=== PATIENT | female | born 1975 | race Asian ===

== ENCOUNTER → 2017-07-26 | Outpatient (CLI) | payer SELFPAY ==
--- NOTE | 2017-07-26 16:46 | WOMENS IMAGING REPORT ---
EXAM DESCRIPTION: BILAT SCREENING MAMMO W/CAD COMPLETED DATE/TIME: 07/26/2017 9:11 am REASON FOR STUDY: ROUTINE SCREENING Z12.31 Z12.31 ENCNTR SCREEN MAMMOGRAM FOR MALIGNANT NEOPLASM OF MJ COMPARISON: 07/25/2016 TECHNIQUE: Standard craniocaudal and mediolateral oblique views of each breast recorded using 24/7 Carda l acquisition. LIMITATIONS: None. FINDINGS: RIGHT BREAST MASSES: No suspicious masses. CALCIFICATIONS: No new or suspicious calcifications. ARCHITECTURAL DISTORTION: None. DEVELOPING DENSITY: None. ASYMMETRY: None noted. OTHER: No other significant findings. LEFT BREAST MASSES: No suspicious masses. CALCIFICATIONS: Question faint calcifications in the far upper outer quadrant left breast ARCHITECTURAL DISTORTION: Question architectural distortion in the far upper outer quadrant left aliyah st DEVELOPING DENSITY: None. ASYMMETRY: None noted. OTHER: No other significant findings. Read with the assistance of CAD. .[facility] - R2 Cenova Version 1.3 .[facility] Imaging - R2 Cenova Version 1.3 .[facility] Imaging - R2 Cenova Version 2.4 .[facility] [place] R2 Cenova Version 2.4 .[facility] - R2 Clinical Research Physician Version 9.2 IMPRESSION: No mammographic evidence for malignancy right breast. Questionable architectural distortion and faint calcifications left breast upper outer quadrant. The se require further investigation with a left breast 90 mediolateral view, compression magnification views in the 90 mediolateral view and exaggerated craniocaudad view. If these findings persist, ult rasound would be required for followup BREAST DENSITY: d. The breasts are extremely dense, which lowers the sensitivity of mammography. BIRAD: 0 Incomplete: Needs Additional Imaging Evaluation and/or prior Mammograms for Comparison. RECOMMENDATION: RECOMMENDED FOLLOW-UP: Left breast diagnostic mammograms and ultrasound The patient will be contacted for additional imaging. COMMENT: The patient has been notified of the results by letter per SA requirements. Additional no tification policies are in place for contacting patient with suspicious or incomplete findings. Quality ID #225: The [employer] recommends an annual screening mammogram for women aged 40 years or over. This facility utilizes a reminder system to ensure that all patients receive reminder letters, and/or direct phone calls for appointments. This includes reminders for routine scr eening mammograms, diagnostic mammograms, or other Breast Imaging Interventions when appropriate. Th is patient will be placed in the appropriate reminder system. The [employer] (ACR) has developed recommendations for screening MRI of the breast s in certain patient populations, to be used in conjunction with mammography. Breast MRI surveillanc e may be appropriate for women with more than 20% lifetime risk of developing breast cancer as deter mined by genetic testing, significant family history of the disease, or history of mantle radiation f or Hodgkins Disease. ACR Practice Guidelines 2008. TECHNICAL DOCUMENTATION: FINDING NUMBER: (1) ASSESSMENT: (1) JOB ID: [id number] [employer]- All Rights Reserved
== END ==
LOC: WI 11:02
PROVIDERS: ATTEND Internal Medicine Geriatric Medicine
DX: Z12.31 Encounter for screening mammogram for malignant neoplasm of breast (principal)
CPT/HCPCS: 77067; G0202

== ENCOUNTER → 2017-08-07 | Outpatient (CLI) | payer BC ==
--- NOTE | 2017-08-07 13:53 | WOMENS IMAGING REPORT ---
EXAM DESCRIPTION: LEFT DIAGNOSTIC MAMMO W/CAD COMPLETED DATE/TIME: 08/07/2017 1:14 pm REASON FOR STUDY: CALCIFICATIONS R92.0 MAMMOGRAPHIC MICROCALCIFICATION FOUND ON DX IMAGING OF COMPARISON: 2015, and 2016 TECHNIQUE: Cone compression and Compression magnification mediolateral oblique images of the left br east recorded with digital acquisition. Additional left breast XCC and 90 mediolateral views. LIMITATIONS: None. FINDINGS: BREAST: Left MASSES: No suspicious masses. Findings of concern on 07/26/2017 mammograms represented superimposed shadows. CALCIFICATIONS: No new or suspicious calcifications. In particular, no microcalcifications over the upper outer quadrant are identified ARCHITECTURAL DISTORTION: None. DEVELOPING DENSITY: None. ASYMMETRY: None noted. OTHER: No other significant findings. Read with the assistance of CAD. .[facility] - R2 Cenova Version 1.3 .[facility] Imaging - R2 Cenova Version 1.3 .[facility] Imaging - R2 Cenova Version 2.4 .[facility] [place] R2 Cenova Version 2.4 .[facility] - R2 [employer] Version 9.2 IMPRESSION: No mammographic evidence for malignancy left breast BREAST DENSITY: d. The breasts are extremely dense, which lowers the sensitivity of mammography. BIRAD: 1 Negative. RECOMMENDATION: RECOMMENDED FOLLOW UP: Please continue yearly bilateral screening mammography Decemb er 2018. Consider bilateral screening tomosynthesis given extremely dense fibroglandular tissue. SPECIFIC INTERVENTION/IMAGING/CONSULTATION RECOMMENDED:No additional intervention/ imaging/consultati on needed at this time. COMMUNICATION:Patient notified by letter COMMENT: The patient has been notified of the results by letter per SA requirements. Additional no tification policies are in place for contacting patient with suspicious or incomplete findings. Quality ID #[id number]: The [employer] recommends an annual screening mammogram for women aged 40 years or over. This facility utilizes a reminder system to ensure that all patients receive reminder letters, and/or direct phone calls for appointments. This includes reminders for routine scr eening mammograms, diagnostic mammograms, or other Breast Imaging Interventions when appropriate. Th is patient will be placed in the appropriate reminder system. The [employer] (ACR) has developed recommendations for screening MRI of the breast s in certain patient populations, to be used in conjunction with mammography. Breast MRI surveillanc e may be appropriate for women with more than 20% lifetime risk of developing breast cancer as deter mined by genetic testing, significant family history of the disease, or history of mantle radiation f or Hodgkins Disease. ACR Practice Guidelines 2008. TECHNICAL DOCUMENTATION: FINDING NUMBER: (1) ASSESSMENT: (1) JOB ID: [id number] [employer]- All Rights Reserved
== END ==
LOC: WI 12:40
PROVIDERS: ATTEND Internal Medicine Geriatric Medicine
DX: R92.0 Mammographic microcalcification found on diagnostic imaging of breast (principal)

== ENCOUNTER 2018-03-05 07:46 | Day surgery (SDC) | payer BC ==
[2018-02-26 10:15] LABS: HEMATOCRIT 38.8 % (36.0-47.0); HEMOGLOBIN 13.4 g/dL (12.0-15.5); MEAN CORPUSCULAR HEMOGLOBIN 30.5 pg (27.0-33.4); MEAN CORPUSCULAR HGB CONC 34.5 g/dL (32.0-36.0); MEAN CORPUSCULAR VOLUME 88 fl (80-97); PLATELET COUNT 180 10^3/uL (150-450); RED BLOOD COUNT 4.39 10^6/uL (3.72-5.28); WHITE BLOOD COUNT 5.4 10^3/uL (4.0-10.5)
[2018-02-26 10:57] LABS: APPEARANCE,URINE SLIGHTLY-CLOUDY; BILIRUBIN,URINE NEGATIVE (NEGATIVE); COLOR,URINE YELLOW; GLUCOSE, URINE NEGATIVE (NEGATIVE); KETONES,URINE NEGATIVE (NEGATIVE); LEUKOCYTE ESTERASE,URINE NEGATIVE (NEGATIVE); NITRITE,URINE NEGATIVE (NEGATIVE); PROTEIN,URINE NEGATIVE (NEGATIVE); UROBILINOGEN,URINE NEGATIVE mg/dL (<2.0)
[~2018-03-05 07:46] MED LIST: ACETAMINOPHEN 1,000 MG/100 ML RTUPB IV ONE; DEXAMETHASONE SOD PHOSPHATE INJ 4 MG/1 ML VIAL ONE; FENTANYL CITRATE INJ/PF 100 MCG/2 ML AMPUL ONE; GLYCOPYRROLATE INJ 0.4 MG/2 ML VIAL ONE; KETOROLAC TROMETHAMINE 60 MG/2 ML SDV ONE; LACTATED RINGERS 1000 ML IV PRN; LIDOCAINE 0.5% INJ-PF (5 MG/ML) 50 ML SDV SUBCUT PRN; LIDOCAINE 1%/EPINEPHRINE INJ 20 ML VIAL ONE; LIDOCAINE 2% INJ-PF (20 MG/ML) 10 ML AMPUL ONE; MIDAZOLAM 2 MG/2 ML INJ ONE; ONDANSETRON HCL INJ/PF 4 MG/2 ML SDV ONE; PROPOFOL INJ 200 MG/20 ML VIAL IV ONE
[2018-03-05] MEDS ORDERED: MORPHINE SULFATE 10 MG/ML INJ IV PRN (09:26)
[2018-03-05] MEDS ORDERED: PROMETHAZINE HCL INJ 25 MG/1 ML VIAL IV PRN ×2 (09:26)
[2018-03-05] MEDS ORDERED: MEPERIDINE HCL/PF INJ 25 MG/1 ML DISP.SYRIN IV PRN (09:26)
[2018-03-05] MEDS ORDERED: DIPHENHYDRAMINE HCL 50 MG/ML VIAL IV PRN (09:26)
[2018-03-05] MEDS ORDERED: FENTANYL CITRATE INJ/PF 100 MCG/2 ML AMPUL IV PRN ×3 (09:26)
--- NOTE | 2018-03-05 10:26 | Operative Report ---
Operative Report DATE OF SURGERY: 03/05/18 PROCEDURE: Anesthesia: [] Anesthesia: LMAC EBL: less than 10ml IVF: [] UOP: void prior to OR Specimens: [] Complications: None Findings:[] Indications: [] Procedure: The patient was taken to the Operating Room where general anesthesia was obtained without difficulty. She was prepped and draped in the normal sterile fashion in the dorsal lithotomy position. Exam under anesthesia was performed and noted above. A speculum was placed in the vagina. The anterior cervix was grasped with a single-tooth tenaculum and the uterus sounded to 8 cm after paracervical block was performed with 8 mL of 1% lidocaine with epinephrine. Sequential dilators were then used to dilate the cervix to accommodate the Myosure hysteroscope. The hysteroscope was then gently advanced into the uterine cavity in the usual fashion with visualization of the endometrial polyp as noted above. The Myosure device was then advanced through the hysteroscope and used to easily remove the endometrial polyp noted within intrauterine cavity. The Myosure device was then removed and the hysteroscope removed. At this time gentle curettage was performed until a gritty texture was noted. All instruments were removed from the patient's cervix and vagina. Silver nitrate was applied to the tenaculum site for hemostasis. Sponge lap needle and instrument counts are correct 2. No perioperative antibiotics were given as is not indicated for this procedure. The patient tolerated the procedure well and was taken to the recovery area awake and in stable condition.
[2018-03-05] MEDS ORDERED: ONDANSETRON HCL INJ/PF 4 MG/2 ML SDV IV PRN (11:00)
[2018-03-05] MEDS ORDERED: HYDROMORPHONE HCL INJ/PF 2 MG/ML AMPULE IV PRN (11:41)
[2018-03-05] MEDS ORDERED: OXYCODONE-ACETAMINOPHEN 5-325 MG TABLET PO PRN ×2 (11:42)
[2018-03-05] MEDS ORDERED: IBUPROFEN 800 MG TABLET PO PRN (11:42)
[2018-03-05 12:18] VITALS: BP 113/66
== END 2018-03-05 12:19 | disposition home or self-care (01) ==
LOC: OROUT 07:46
PROVIDERS: ATTEND Student in an Organized Health Care Education/Training Program
DX: N92.0 Excessive and frequent menstruation with regular cycle (principal); N84.0 Polyp of corpus uteri; N93.8 Other specified abnormal uterine and vaginal bleeding; Z01.818 Encounter for other preprocedural examination
CPT/HCPCS: 36415; 85027; 81025; 81001; 88305 ×2; 58558; J2250; J1100; J1885; J3010; J3490 ×2; J2405; J2704; J0131; 952

== ENCOUNTER → 2018-08-11 | Outpatient (CLI) | payer BC | LOC: WI 09:08 | PROVIDERS: ATTEND Internal Medicine Geriatric Medicine | DX: Z12.31 Encounter for screening mammogram for malignant neoplasm of breast (principal) | CPT/HCPCS: 77067 ==

== ENCOUNTER 2018-09-29 10:37 | Day surgery (SDC) | payer BC ==
[~2018-09-29 10:37] MED LIST changes: -ACETAMINOPHEN 1,000 MG/100 ML RTUPB IV ONE; -DEXAMETHASONE SOD PHOSPHATE INJ 4 MG/1 ML VIAL ONE; -FENTANYL CITRATE INJ/PF 100 MCG/2 ML AMPUL ONE; -GLYCOPYRROLATE INJ 0.4 MG/2 ML VIAL ONE; -KETOROLAC TROMETHAMINE 60 MG/2 ML SDV ONE; -LACTATED RINGERS 1000 ML IV PRN; -LIDOCAINE 0.5% INJ-PF (5 MG/ML) 50 ML SDV SUBCUT PRN; -LIDOCAINE 1%/EPINEPHRINE INJ 20 ML VIAL ONE; -LIDOCAINE 2% INJ-PF (20 MG/ML) 10 ML AMPUL ONE; -MIDAZOLAM 2 MG/2 ML INJ ONE; -ONDANSETRON HCL INJ/PF 4 MG/2 ML SDV ONE
[2018-09-29 13:53] VITALS: BP 111/67
--- NOTE | 2018-09-29 14:28 | Operative Report ---
Operative Report DATE OF SURGERY: 09/29/18 Operative Report: The risks benefits and alternatives of the procedure explained to the patient in detail and informed consent is obtained.A GIF Olympus video scope was inserted into the patient's mouth and hypopharynx, the esophagus is identified intubated and insufflated, the scope was then advanced through the esophagus stomach and duodenum ,retroflexion maneuver is done, the esophagus stomach and first and second portions of the duodenum examined. PREOPERATIVE DIAGNOSIS: Dysphagia POSTOPERATIVE DIAGNOSIS: Gastritis status post biopsy. Esophagitis status post biopsy, may have a mild Schatzki's ring OPERATION: EGD with biopsy SURGEON: LOVELY HENSON ANESTHESIA: LMAC TISSUE REMOVED OR ALTERED: As noted above. COMPLICATIONS: None. ESTIMATED BLOOD LOSS: None. INTRAOPERATIVE FINDINGS: As noted above. PROCEDURE: Patient tolerated the procedure well. No immediate postprocedure complications are noted. Patient discharged in good condition. Discharge date 09/29/2018. Discharge diet: Regular. Discharge activity: Regular. 2-3-week follow-up to discuss findings. We will wait on the pathology.
== END 2018-09-29 13:55 | disposition home or self-care (01) ==
LOC: END 10:37
PROVIDERS: ATTEND Internal Medicine Gastroenterology
DX: K22.2 Esophageal obstruction (principal); K29.50 Unspecified chronic gastritis without bleeding; K20.9 Esophagitis, unspecified; Z79.899 Other long term (current) drug therapy
CPT/HCPCS: 43239; 88342 ×2; 88305 ×2; J2704

== ENCOUNTER → 2018-10-24 | Outpatient (CLI) | payer BC ==
--- NOTE | 2018-10-24 13:12 | RADIOLOGY REPORT (SQ) ---
EXAM DESCRIPTION: U/S ABDOMEN LIMITED W/O DOP COMPLETED DATE/TIME: 10/24/2018 11:48 am REASON FOR STUDY: NAUSEA WITH VOMITING, USNPECIFID/R11.2 NAUSEA WITH VOMITING, UNSPECIFIED R11.2 NA USEA WITH VOMITING, UNSPECIFIED COMPARISON: None. TECHNIQUE: Dynamic and static grayscale images acquired of the abdomen and recorded on PACS. Additio nal selected color Doppler and spectral images recorded. LIMITATIONS: None. FINDINGS: PANCREAS: No masses. Visualized pancreatic duct normal caliber. LIVER: No masses. Echotexture normal. LIVER VASCULATURE: Normal directional flow of the main portal vein and hepatic veins. GALLBLADDER: No stones. Normal wall thickness. No pericholecystic fluid. ULTRASOUND-DETECTED SAMSON'S SIGN: Negative. INTRAHEPATIC DUCTS AND COMMON DUCT: CBD and intrahepatic ducts normal caliber. No filling defects. INFERIOR VENA CAVA: Not imaged AORTA: No aneurysm. RIGHT KIDNEY: Normal size, 9.2 cm. Normal echogenicity. No solid or suspicious masses. No hydronephr osis. No calcifications. PERITONEAL AND RIGHT PLEURAL SPACE: No ascites or effusions. OTHER: No other significant findings. IMPRESSION: NORMAL RIGHT UPPER QUADRANT ULTRASOUND. TECHNICAL DOCUMENTATION: JOB ID: [id number] [employer]- All Rights Reserved Reading location - IP/workstation name: [email or web address]
--- NOTE | 2018-10-24 14:28 | RADIOLOGY REPORT (SQ) ---
EXAM DESCRIPTION: NM HIDA SCAN WITH CCK COMPLETED DATE/TIME: 10/24/2018 1:28 pm REASON FOR STUDY: NAUSEA WITH VOMITING, USNPECIFID/R11.2 NAUSEA WITH VOMITING, UNSPECIFIED R11.2 NA USEA WITH VOMITING, UNSPECIFIED COMPARISON: None. RADIONUCLIDE AND DOSE: DOSAGE RADIONUCLIDE: 5 millicuries Tc99m Mebrofenin. DOSAGE CCK: 1 micrograms. DOSAGE MORPHINE: Not required. The route of agent administration: Intravenous TECHNIQUE: Serial imaging right upper quadrant up to 60 minutes following injection of radionuclide. CCK injected after gallbladder visualized. LIMITATIONS: None. FINDINGS: LIVER: Normal visualization without areas of photopenia. INTRAHEPATIC BILE DUCTS: Normal size and no delay in visualization. COMMON BILE DUCT: Normal without dilatation. GALLBLADDER: Normal visualization. Calculated ejection fraction of 30%. Normal range is greater th an 35%. PHYSICAL RESPONSE: Patients presenting complaint was not reproduced. OTHER: No other significant finding. IMPRESSION: Mild biliary dyskinesis with an ejection fraction of 30% where 35% or greater is conside red normal. The patient's symptoms were not reproduced with the administration of CCK. TECHNICAL DOCUMENTATION: JOB ID: [id number] [employer]- All Rights Reserved Reading location - IP/workstation name: [email or web address]
== END ==
LOC: RAD 11:19
PROVIDERS: ATTEND Internal Medicine Gastroenterology
DX: R11.2 Nausea with vomiting, unspecified (principal); R14.0 Abdominal distension (gaseous)
CPT/HCPCS: 76705; 78227; J2805; A9537; Q9969